=== PATIENT | male | born 1985 | race Caucasian/White ===

== ENCOUNTER 2020-02-19 15:26 | Emergency (ER) | payer OTHER, MEDICAID, SELFPAY ==
[2020-02-19 15:53] VITALS: BP 171/92; PULSE 112; RESP 20; TEMP 36.7; O2SAT 100
[2020-02-19 16:12] LABS: RBC Urine None Seen (0-5/HPF)
[2020-02-19 16:15] LABS: Appearance Urine UA CLEAR; Bilirubin Urine UA NEGATIVE (NEGATIVE); Color Urine UA YELLOW; Glucose Urine UA NEGATIVE (Negative); Ketones Urine UA 3+ (NEGATIVE); Leukocyte Esterase Urine UA NEGATIVE (NEGATIVE); Nitrite Urine UA NEGATIVE (Negative); Occult Blood Urine UA NEGATIVE (Negative); Protein Urine UA TRACE (Negative); Specific Gravity Urine UA 1.025 (1.000-1.035); Urobilinogen Urine UA 0.2 E.U./dL (0.2)
[2020-02-19 16:18] LABS: Add Manual Diff / Slide Review NO; Basophils Absolute Auto 0 /uL (0-100); Basophils Percent Auto 0.3 % (0-2); Eosinophils Absolute Auto 100 /uL (0-450); Eosinophils Percent Auto 0.7 % (2-4); Hematocrit 42.3 % (41-53); Lymphocytes Absolute Auto 1800 /uL (1100-4500); Mean Corpuscular HGB Conc 33.1 % (30-36); Mean Corpuscular Hemoglobin 31.1 PG (26-34); Mean Corpuscular Volume 93.8 fL (80-100); Monocytes Absolute Auto 1100 /uL (0-900); Monocytes Percent Auto 9.8 % (3-14); Neutrophils Absolute Auto 8300 /uL (1500-7000); Neutrophils Percent Auto 73.2 % (50-75); Platelet Count 278 X10^3/uL (150-400); Red Blood Cell Count 4.51 X10^6/uL (4.5-5.9); Red Cell Distribution Width 12.7 % (11.6-14.8); White Blood Cell Count 11.3 X10^3/uL (4.5-11.0)
[2020-02-19 16:21] LABS: UR Morphine/Opiate cutoff 300 Positive (Negative); Ur Creatinine Normal (Normal); Ur Specific Gravity Normal (Normal); Urine Amphetamines Positive (Negative); Urine Cocaine Negative (Negative); Urine Methamphetamines Positive (Negative); Urine Tetrahydrocannabinol Positive (Negative); Urine pH Normal (Normal)
[2020-02-19 16:22] LABS: Urine Barbiturates Negative (Negative); Urine Benzodiazepines Negative (Negative); Urine MDMA Negative (Negative); Urine Methadone Negative (Negative); Urine Oxycodone Negative (Negative); Urine Phencyclidine Negative (Negative); Urine Tricyclic Antidepressant Negative (Negative)
[2020-02-19 16:28] LABS: Alanine Aminotransferase 23 IU/L (<50); Albumin 4.5 g/dL (3.5-5.0); Albumin Globulin Ratio 1.5 (1.0-2.8); Alkaline Phosphatase 70 U/L (38-126); Aspartate Aminotransferase 42 IU/L (17-59); BUN Creatinine Ratio 12.5 (6-22); Bilirubin Total 0.8 mg/dL (0.2-1.3); Blood Urea Nitrogen 9 mg/dL (9-20); Calcium 9.3 mg/dL (8.4-10.2); Carbon Dioxide 29 mmol/L (22-32); Chloride 98 mmol/L (98-107); Estimated Glomerular Filt Rate > 60.0 mL/min (>60); Ethanol (ETOH) < 10 mg/dL; Globulin 3.1 g/dL (1.7-4.1); Glucose 103 mg/dL (70-100); HEMOLYSIS < 15 (0-50); Potassium 3.3 mmol/L (3.4-5.1); Sodium 137 mmol/L (137-145); Total Protein 7.6 g/dL (6.3-8.2)
[2020-02-19 16:35] LABS: Acetaminophen < 10 ug/mL (10-30); Salicylate < 1.0 mg/dL (<20)
[2020-02-19 16:36] LABS: Bacteria Urine Occasional (0-1); Culture Indicated Urine Cult Not Indicated; Mucus Urine 3+ (Negative); WBC Urine 0-1/HPF (0-5/HPF)
--- NOTE | 2020-02-19 16:44 | ED.ALCOHOL ---
HPI - Alcohol <Kiesha Roger PA-C - Last Filed: 02/19/20 19:33> General Chief Complaint: Toxicology Problem Stated Complaint: needs to be cleared for detox Time Seen by Provider: 02/19/20 15:28 Source: patient Mode of arrival: Ambulatory History of Present Illness HPI narrative: Luis E Escamilla is a 34-year-old male with a history of alcohol abuse and heroin use who presents to the emergency department POV for medical clearance to go to detox. He states he last had a drink about 3 days ago but was drinking about half a L of liquor usually vodka daily. He also states that he smokes heroin daily pretty much ?all day? for at least the last 7 days. He recently moved here to [place] from [place], with his family, he has been to detox before and has been on Suboxone before. He is currently seeking detox treatment so that he can be clean for at least 7 days to get a Vivitrol shot. He last smoked heroin this morning, and he endorses mild symptoms of withdrawal such as generalized diffuse abdominal discomfort and feeling generally a little bit uncomfortable. He reports otherwise he has been in his normal state of health and has no other concerns. MD complaint: desires rehab Last drink: just prior to this admission (3) and days (ago) Amount of alcohol consumed: At least a pt per day of vodka or other liquor. Also endorses smoking heroin on a daily basis for at least the last 7 days in a row. Chronic alcohol use: Yes Previous visits for alcohol intoxication: No Recent trauma: No Associated symptoms: abdominal pain (Described as discomfort) Treatments prior to arrival: none Related Data Allergies Allergy/AdvReac Type Severity Reaction Status Date / Time No Known Drug Allergies Allergy Verified 02/19/20 15:55 Review of Systems <Kiesha Roger PA-C - Last Filed: 02/19/20 19:33> Review of Systems Narrative: GENERAL: Denies chills, fatigue, malaise, fever, sweats. HEENT: Denies sinus pain, ear pain, sore throat, difficulty swallowing, dizziness. RESPIRATORY: Denies dyspnea, cough, wheezing, hemoptysis, sputum. CARDIOVASCULAR: Denies chest pain, palpitations, orthopnea, edema, GASTROINTESTINAL: Denies nausea, vomiting, abdominal pain, diarrhea, constipation, melena. : Denies dysuria, frequency, incontinence, hematuria, urinary retention. MUSCULOSKELETAL: denies weakness, joint pain, or bony pain SKIN: Denies rash, skin lesions, or other NEUROLOGIC: Denies weakness, headache, numbness, change in speech, confusion, seizures, incoordination. PSYCHIATRIC: No concerning psychosocial issues. 12 point review of systems is negative except for those stated above Patient History <Kiesha Roger PA-C - Last Filed: 02/19/20 19:33> Social History Smoking Status: Current some day smoker Smoking Status: Current some day smoker alcohol intake frequency: 3 or more drinks per day Alcohol type: hard liquor Substance Use Type: heroin Exam <Kiesha Roger PA-C - Last Filed: 02/19/20 19:33> Narrative Exam Narrative: GENERAL: 34 year old patient appears stated age. Well-nourished, well-developed patient, in mild distress. HEAD: Atraumatic. Normocephalic. EYES: Pupils equal round and reactive. Extraocular motions intact. No scleral icterus. No injection or drainage. ENT: Nose without bleeding, purulent drainage. Throat without erythema, tonsillar hypertrophy or exudate. Airway patent. NECK: Trachea midline. Non tender CARDIOVASCULAR: Regular rate and rhythm without murmurs, gallops, or rubs. RESPIRATORY: Clear to auscultation. Breath sounds equal bilaterally. No wheezes, rales, or rhonchi. GASTROINTESTINAL: Abdomen soft, non-tender, nondistended. EXTREMITIES: No edema or joint tenderness. BACK: Nontender without deformity or crepitance. No flank tenderness. NEURO: AOx3. SKIN: No rash or erythema of visible areas Initial Vital Signs Initial Vital Signs: Vital Signs Temperature 98.1 F 02/19/20 15:53 Pulse Rate 112 H 02/19/20 15:53 Respiratory Rate 02/19/20 15:53 Blood Pressure 171/92 H 02/19/20 15:53 Pulse Oximetry 100 02/19/20 15:53 <Madi Vizcaino DO - Last Filed: 02/25/20 19:01> Initial Vital Signs Initial Vital Signs: Vital Signs Temperature 98.1 F 02/19/20 15:53 Pulse Rate 112 H 02/19/20 15:53 Respiratory Rate 02/19/20 15:53 Blood Pressure 171/92 H 02/19/20 15:53 Pulse Oximetry 100 02/19/20 15:53 Course <Kiesha Roger PA-C - Last Filed: 02/19/20 19:33> Course Course Narrative: Patient was advised of the plan, and the need to medically clear him prior to arranging transport to detox. Orders Ordered: ED Orders 02/19/20 16:01 Urinalysis and Microscopic Stat Urine Drug Screen, Rapid Stat 02/19/20 16:10 Acetaminophen Stat Complete Blood Count AUTO DIFF Stat Comprehensive Metabolic Panel Stat Ethanol (ETOH) Stat Salicylate Stat Reevaluation(s) Reevaluation #1: Patient is still doing well, has been updated as to the results of his labs, also plan for transferring him to detox facility via taxi. He has his vehicle here in a parking lot outside the ED, has been notified that security will be aware of it and can stay here for the duration of his stay at detox if needed. Vital Signs Vital signs: Vital Signs - 8 hr 02/19/20 15:53 Temperature 98.1 F Pulse Rate 112 H Respiratory Rate 20 Blood Pressure 171/92 H Pulse Oximetry 100 <Madi Vizcaino DO - Last Filed: 02/25/20 19:01> Orders Ordered: ED Orders 02/19/20 16:01 Urinalysis and Microscopic Stat Urine Drug Screen, Rapid Stat 02/19/20 16:10 Acetaminophen Stat Complete Blood Count AUTO DIFF Stat Comprehensive Metabolic Panel Stat Ethanol (ETOH) Stat Salicylate Stat Vital Signs Vital signs: Vital Signs - 8 hr 02/19/20 15:53 Temperature 98.1 F Pulse Rate 112 H Respiratory Rate 20 Blood Pressure 171/92 H Pulse Oximetry 100 MDM - Alcohol <Kiesha Roger PA-C - Last Filed: 02/19/20 19:33> Differential Diagnosis Differential diagnosis: Likely alcohol intoxication (opiate withdrawal, opiate addiction) and alcohol withdrawal syndrome Lab Data Attestation: I reviewed the patient's lab results. Result diagrams: 02/19/20 16:10 02/19/20 16:10 Labs: Lab Results 02/19/20 02/19/20 02/19/20 Range/Units 16:01 16:01 16:10 WBC 11.3 H (4.5-11.0) X10^3/uL RBC 4.51 (4.5-5.9) X10^6/uL Hgb 14.0 (13.5-17.5) g/dL Hct 42.3 (41-53) % MCV 93.8 (80-100) fL MCH 31.1 (26-34) PG MCHC 33.1 (30-36) % RDW 12.7 (11.6-14.8) % Plt Count 278 (150-400) X10^3/uL Neut % (Auto) 73.2 (50-75) % Lymph % (Auto) 16.0 L (25-40) % Ponce % (Auto) 9.8 (3-14) % Eos % (Auto) 0.7 L (2-4) % Baso % (Auto) 0.3 (0-2) % Neut # (Auto) 8300 H (4719-7823) /uL Lymph # (Auto) 1800 (7781-6009) /uL Ponce # (Auto) 1100 H (0-900) /uL Eos # (Auto) 100 (0-450) /uL Baso # (Auto) 0 (0-100) /uL Sodium (137-145) mmol/L Potassium (3.4-5.1) mmol/L Chloride (98-107) mmol/L Carbon Dioxide (22-32) mmol/L BUN (9-20) mg/dL Creatinine (0.66-1.25) mg/dL Estimated GFR (>60) mL/min BUN/Creatinine Ratio (6-22) Glucose (70-100) mg/dL Calcium (8.4-10.2) mg/dL Total Bilirubin (0.2-1.3) mg/dL AST (17-59) IU/L ALT (<50) IU/L Alkaline Phosphatase (38-126) U/L Total Protein (6.3-8.2) g/dL Albumin (3.5-5.0) g/dL Globulin (1.7-4.1) g/dL Albumin/Globulin Ratio (1.0-2.8) Urine Color Yellow Urine Appearance Clear Urine pH 6.0 (4.5-8.0) Ur Specific [place] 1.025 (1.000-1.035) Urine Protein Trace H (Negative) Urine Glucose (UA) Negative (Negative) g/dL Urine Ketones 3+ H (NEGATIVE) Urine Occult Blood Negative (Negative) Urine Nitrate Negative (Negative) Urine Bilirubin Negative (NEGATIVE) Urine Urobilinogen 0.2 (0.2) E.U./dL Ur Leukocyte Esterase Negative (NEGATIVE) Urine RBC None seen (0-5/HPF) Urine WBC 0-1/hpf (0-5/HPF) Urine Bacteria Occasional (0-1) (None) Urine Mucus 3+ H (Negative) Ur Culture Indicated? Cult not indicated Salicylates (<20) mg/dL U Opiates 300ng/mL cut Positive H (Negative) Ur Oxycodone Screen Negative (Negative) Urine Methadone Screen Negative (Negative) Acetaminophen (10-30) ug/mL Ur Barbiturates Screen Negative (Negative) U Tricyclic Antidepress Negative (Negative) Ur Phencyclidine Scrn Negative (Negative) Ur Amphetamines Screen Positive H (Negative) U Methamphetamines Scrn Positive H (Negative) Ur MDMA Scrn (Ecstasy) Negative (Negative) U Benzodiazepines Scrn Negative (Negative) Urine Cocaine Screen Negative (Negative) U Marijuana (THC) Screen Positive H (Negative) Ethyl Alcohol ( - 10) mg/dL 02/19/20 02/19/20 Range/Units 16:10 16:10 WBC (4.5-11.0) X10^3/uL RBC (4.5-5.9) X10^6/uL Hgb (13.5-17.5) g/dL Hct (41-53) % MCV (80-100) fL MCH (26-34) PG MCHC (30-36) % RDW (11.6-14.8) % Plt Count (150-400) X10^3/uL Neut % (Auto) (50-75) % Lymph % (Auto) (25-40) % [place]once % (Auto) (3-14) % Eos % (Auto) (2-4) % Baso % (Auto) (0-2) % Neut # (Auto) (3167-8155) /uL Lymph # (Auto) (7053-0470) /uL Ponce # (Auto) (0-900) /uL Eos # (Auto) (0-450) /uL Baso # (Auto) (0-100) /uL Sodium 137 (137-145) mmol/L Potassium 3.3 L (3.4-5.1) mmol/L Chloride 98 (98-107) mmol/L Carbon Dioxide 29 (22-32) mmol/L BUN 9 (9-20) mg/dL Creatinine 0.72 (0.66-1.25) mg/dL Estimated GFR > 60.0 (>60) mL/min BUN/Creatinine Ratio 12.5 (6-22) Glucose 103 H (70-100) mg/dL Calcium 9.3 (8.4-10.2) mg/dL Total Bilirubin 0.8 (0.2-1.3) mg/dL AST 42 (17-59) IU/L ALT 23 (<50) IU/L Alkaline Phosphatase 70 (38-126) U/L Total Protein 7.6 (6.3-8.2) g/dL Albumin 4.5 (3.5-5.0) g/dL Globulin 3.1 (1.7-4.1) g/dL Albumin/Globulin Ratio 1.5 (1.0-2.8) Urine Color Urine Appearance Urine pH (4.5-8.0) Ur Specific [place] (1.000-1.035) Urine Protein (Negative) Urine Glucose (UA) (Negative) g/dL Urine Ketones (NEGATIVE) Urine Occult Blood (Negative) Urine Nitrate (Negative) Urine Bilirubin (NEGATIVE) Urine Urobilinogen (0.2) E.U./dL Ur Leukocyte Esterase (NEGATIVE) Urine RBC (0-5/HPF) Urine WBC (0-5/HPF) Urine Bacteria (None) Urine Mucus (Negative) Ur Culture Indicated? Salicylates < 1.0 (<20) mg/dL U Opiates 300ng/mL cut (Negative) Ur Oxycodone Screen (Negative) Urine Methadone Screen (Negative) Acetaminophen < 10 L (10-30) ug/mL Ur Barbiturates Screen (Negative) U Tricyclic Antidepress (Negative) Ur Phencyclidine Scrn (Negative) Ur Amphetamines Screen (Negative) U Methamphetamines Scrn (Negative) Ur MDMA Scrn (Ecstasy) (Negative) U Benzodiazepines Scrn (Negative) Urine Cocaine Screen (Negative) U Marijuana (THC) Screen (Negative) Ethyl Alcohol < 10 ( - 10) mg/dL MDM Narrative Medical decision making narrative: This is a generally well-appearing 34-year-old recently moved from [place] who presents for medical clearance to go to detox for alcohol and opioid treatment. Based on history and exam I have no concern for symptoms of coronavirus or COVID-19, and he does not meet criteria for testing today. Pending medical clearance, plan to discharge [facility], patient will go via taxi to the detox center, his vehicle will remain here in the hospital parking lot, security has been notified.. Differential diagnoses considered include alcohol withdrawal, alcohol withdrawal seizures, alcohol intoxication, opioid withdrawal, he is not in any acute distress, and is well appearing, history and exam are unremarkable, it is appropriate to discharge him to Treatment Center for detox. <Madi Vizcaino, DO - Last Filed: 02/25/20 19:01> Lab Data Labs: Lab Results 02/19/20 02/19/20 02/19/20 Range/Units 16:01 16:01 16:10 WBC 11.3 H (4.5-11.0) X10^3/uL RBC 4.51 (4.5-5.9) X10^6/uL Hgb 14.0 (13.5-17.5) g/dL Hct 42.3 (41-53) % MCV 93.8 (80-100) fL MCH 31.1 (26-34) PG MCHC 33.1 (30-36) % RDW 12.7 (11.6-14.8) % Plt Count 278 (150-400) X10^3/uL Neut % (Auto) 73.2 (50-75) % Lymph % (Auto) 16.0 L (25-40) % [place]once % (Auto) 9.8 (3-14) % Eos % (Auto) 0.7 L (2-4) % Baso % (Auto) 0.3 (0-2) % Neut # (Auto) 8300 H (7130-7173) /uL Lymph # (Auto) 1800 (6812-0694) /uL Ponce # (Auto) 1100 H (0-900) /uL Eos # (Auto) 100 (0-450) /uL Baso # (Auto) 0 (0-100) /uL Sodium (137-145) mmol/L Potassium (3.4-5.1) mmol/L Chloride (98-107) mmol/L Carbon Dioxide (22-32) mmol/L BUN (9-20) mg/dL Creatinine (0.66-1.25) mg/dL Estimated GFR (>60) mL/min BUN/Creatinine Ratio (6-22) Glucose (70-100) mg/dL Calcium (8.4-10.2) mg/dL Total Bilirubin (0.2-1.3) mg/dL AST (17-59) IU/L ALT (<50) IU/L Alkaline Phosphatase (38-126) U/L Total Protein (6.3-8.2) g/dL Albumin (3.5-5.0) g/dL Globulin (1.7-4.1) g/dL Albumin/Globulin Ratio (1.0-2.8) Urine Color Yellow Urine Appearance Clear Urine pH 6.0 (4.5-8.0) Ur Specific [place] 1.025 (1.000-1.035) Urine Protein Trace H (Negative) Urine Glucose (UA) Negative (Negative) g/dL Urine Ketones 3+ H (NEGATIVE) Urine Occult Blood Negative (Negative) Urine Nitrate Negative (Negative) Urine Bilirubin Negative (NEGATIVE) Urine Urobilinogen 0.2 (0.2) E.U./dL Ur Leukocyte Esterase Negative (NEGATIVE) Urine RBC None seen (0-5/HPF) Urine WBC 0-1/hpf (0-5/HPF) Urine Bacteria Occasional (0-1) (None) Urine Mucus 3+ H (Negative) Ur Culture Indicated? Cult not indicated Salicylates (<20) mg/dL U Opiates 300ng/mL cut Positive H (Negative) Ur Oxycodone Screen Negative (Negative) Urine Methadone Screen Negative (Negative) Acetaminophen (10-30) ug/mL Ur Barbiturates Screen Negative (Negative) U Tricyclic Antidepress Negative (Negative) Ur Phencyclidine Scrn Negative (Negative) Ur Amphetamines Screen Positive H (Negative) U Methamphetamines Scrn Positive H (Negative) Ur MDMA Scrn (Ecstasy) Negative (Negative) U Benzodiazepines Scrn Negative (Negative) Urine Cocaine Screen Negative (Negative) U Marijuana (THC) Screen Positive H (Negative) Ethyl Alcohol ( - 10) mg/dL 02/19/20 02/19/20 Range/Units 16:10 16:10 WBC (4.5-11.0) X10^3/uL RBC (4.5-5.9) X10^6/uL Hgb (13.5-17.5) g/dL Hct (41-53) % MCV (80-100) fL MCH (26-34) PG MCHC (30-36) % RDW (11.6-14.8) % Plt Count (150-400) X10^3/uL Neut % (Auto) (50-75) % Lymph % (Auto) (25-40) % [place]once % (Auto) (3-14) % Eos % (Auto) (2-4) % Baso % (Auto) (0-2) % Neut # (Auto) (7624-0312) /uL Lymph # (Auto) (5954-9691) /uL [place]once # (Auto) (0-900) /uL Eos # (Auto) (0-450) /uL Baso # (Auto) (0-100) /uL Sodium 137 (137-145) mmol/L Potassium 3.3 L (3.4-5.1) mmol/L Chloride 98 (98-107) mmol/L Carbon Dioxide 29 (22-32) mmol/L BUN 9 (9-20) mg/dL Creatinine 0.72 (0.66-1.25) mg/dL Estimated GFR > 60.0 (>60) mL/min BUN/Creatinine Ratio 12.5 (6-22) Glucose 103 H (70-100) mg/dL Calcium 9.3 (8.4-10.2) mg/dL Total Bilirubin 0.8 (0.2-1.3) mg/dL AST 42 (17-59) IU/L ALT 23 (<50) IU/L Alkaline Phosphatase 70 (38-126) U/L Total Protein 7.6 (6.3-8.2) g/dL Albumin 4.5 (3.5-5.0) g/dL Globulin 3.1 (1.7-4.1) g/dL Albumin/Globulin Ratio 1.5 (1.0-2.8) Urine Color Urine Appearance Urine pH (4.5-8.0) Ur Specific [place] (1.000-1.035) Urine Protein (Negative) Urine Glucose (UA) (Negative) g/dL Urine Ketones (NEGATIVE) Urine Occult Blood (Negative) Urine Nitrate (Negative) Urine Bilirubin (NEGATIVE) Urine Urobilinogen (0.2) E.U./dL Ur Leukocyte Esterase (NEGATIVE) Urine RBC (0-5/HPF) Urine WBC (0-5/HPF) Urine Bacteria (None) Urine Mucus (Negative) Ur Culture Indicated? Salicylates < 1.0 (<20) mg/dL U Opiates 300ng/mL cut (Negative) Ur Oxycodone Screen (Negative) Urine Methadone Screen (Negative) Acetaminophen < 10 L (10-30) ug/mL Ur Barbiturates Screen (Negative) U Tricyclic Antidepress (Negative) Ur Phencyclidine Scrn (Negative) Ur Amphetamines Screen (Negative) U Methamphetamines Scrn (Negative) Ur MDMA Scrn (Ecstasy) (Negative) U Benzodiazepines Scrn (Negative) Urine Cocaine Screen (Negative) U Marijuana (THC) Screen (Negative) Ethyl Alcohol < 10 ( - 10) mg/dL Discharge Plan Departure Patient Disposition: Released, Other Clinical Impression: Desire for detoxification, Polydrug dependence including opioid type drug with episodic abuse without complication Discharge Date/Time: 02/19/20 18:54 Instructions: DI for Alcohol Abuse, DI for Drug Abuse and Drug Addiction, DI for Alcohol Poisoning Activity Restrictions/Additional Instructions: There is no evidence of an emergent or life threatening illness at this time, but follow up with your doctor in 1-2 days is recommended nonetheless to continue to rule out serious underlying causes of your symptoms. Please call the office for an appointment. Please return to the Emergency Department for any worsening or persistent symptoms. Please take medications as directed. Your information has been transferred to [facility] detox center. You have been medically cleared to go to detox. you did not have any symptoms suggestive of coronavirus, and do not warrant testing for this today. Referrals: [facility] [Outside] <Madi Vizcaino, DO - Last Filed: 02/25/20 19:01> Cosign ED Attending Costamature Attestation: Dr Vizcaino Co-Sign Statement: I was available for consultation during this patient's emergency department visit. This chart is signed by myself for administrative purposes only. I did not have direct contact with this patient during this visit. They were seen independently by the APC.
--- NOTE | 2020-02-19 17:41 | PC.NURSE ---
Pt is afebrile, denies fever/cough/soa or recent illness, negative for covid-19 symptom check
== END 2020-02-19 18:54 | disposition home or self-care (01) ==
PROVIDERS: Emergency Medicine; Emergency Provider Student in an Organized Health Care Education/Training Program
DX: F19.20 Other psychoactive substance dependence, uncomplicated (principal)
CPT/HCPCS: 36415; 80053; 80305; 80320; 80329; 81001; 85025; 99283; G0480

== ENCOUNTER 2025-03-09 19:25 | Emergency (ER) | payer OTHER, SELFPAY ==
[2025-03-09 19:28] VITALS: BP 132/80; PULSE 68; RESP 16; TEMP 36.7; O2SAT 100; BMI 26.9
--- NOTE | 2025-03-09 19:37 | ED_ITS ---
HPI - Back Pain/Injury General Chief Complaint: Back Pain/Injury Stated Complaint: lower back and side px x 14 days Time Seen by Provider: 03/09/25 19:36 Source: patient History of Present Illness HPI Narrative: 39-year-old gentleman middle to lower back pain that is been ongoing for the past few weeks unrelieved with Tylenol. Patient states that when he urinates at times it also feels different in his back and especially when he lies down at night. He denies any numbness tingling down the legs bowel or bladder incontinence or gait instability. 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 Other than what is stated 14 point review of system is negative. Related Data Previous Rx's Medication Instructions Recorded cyclobenzaprine 10 mg tablet 10 mg PO TID PRN muscle spasm #30 03/09/25 tabs diclofenac potassium 50 mg tablet 50 mg PO TID PRN pain #30 tabs 03/09/25 prednisone 20 mg tablet 20 mg PO DAILY #5 tabs 03/09/25 Allergies Allergy/AdvReac Type Severity Reaction Status Date / Time No Known Drug Allergies Allergy Verified 03/09/25 19:28 Review of Systems Review of Systems ROS Unobtainable: All systems reviewed & are unremarkable except as noted in HPI and below Patient History Social History Smoking Status: Current every day smoker Smoking Status: Current every day smoker tobacco type: vaping alcohol intake frequency: 3 or more drinks per day Alcohol type: hard liquor Exam Narrative Exam Narrative: GENERAL: [39] year old patient appears stated age. Well-developed patient, in mild distress. HEAD: Atraumatic. Normocephalic. EYES: Pupils equal round and reactive. Extraocular motions intact. No scleral icterus. No injection or drainage. NECK: Trachea midline. Non tender GASTROINTESTINAL: Abdomen soft, non-tender, nondistended. EXTREMITIES: No edema or joint tenderness. BACK: TTP b/l T8-12 and L1-4 midline without deformity or crepitance. No flank tenderness. NEURO: AOx3. SKIN: No rash or erythema of visible areas Initial Vital Signs Initial Vital Signs: Vital Signs Temperature 98.0 F 03/09/25 19:28 Pulse Rate 68 03/09/25 19:28 Respiratory Rate 16 03/09/25 19:28 Blood Pressure 132/80 05/04/25 19:28 Pulse Oximetry 100 03/09/25 19:28 Oxygen Delivery Method Room Air 03/09/25 19:28 Course Orders Ordered: ED Orders 03/09/25 19:55 XR lumbar spine min 4V Stat XR thoracic spine 3V Stat 03/09/25 20:02 Urine Microscopic Stat Discontinued Medications Cyclobenzaprine HCl (Cyclobenzaprine 10 Mg Tablet) 10 mg PO NOW ONE Stop: 03/09/25 19:57 Last Admin: 03/09/25 20:02 Dose: 10 mg Documented By: ADAM Ibuprofen (Ibuprofen 400 Mg Tablet) 800 mg PO NOW ONE Stop: 03/09/25 19:57 Last Admin: 03/09/25 20:01 Dose: 800 mg Documented By: ADAM Prednisone (Prednisone 20 Mg Tablet) 60 mg PO NOW ONE Stop: 03/09/25 19:57 Last Admin: 03/09/25 20:02 Dose: 60 mg Documented By: ADAM Vital Signs Vital signs: Vital Signs - 8 hr 03/09/25 19:28 Temperature 98.0 F Pulse Rate 68 Respiratory Rate 16 Blood Pressure 132/80 Pulse Oximetry 100 Oxygen Delivery Method Room Air MDM - Back Pain/Injury Lab Data Labs: Lab Results 03/09/25 Range/Units 20:02 Urine RBC None seen (0-5/HPF) Urine WBC None seen (0-5/HPF) Ur Squamous Epith Cells None seen (0-5/HPF) Urine Bacteria None seen (None) Ur Culture Indicated? Cult not indicated Vol Urine Centrifuged 10ml (spun) Urine Dip Bedside Urine Glucose Negative Bedside Urine Bilirubin - Negative Bedside Urine Ketone - Negative Urine Specific [place] 1.020 Bedside Urine Occult Blood - Negative Bedside Urine pH 6.0 Bedside Urine Protein - Negative Bedside Urine Urobilinogen - Negative Bedside Urine Nitrite - Negative Bedside Urine Leukocytes - Negative Esterase Imaging Data Extremity x-ray #1: Radiologist's Impression: [address] [address] XRay Report Signed Patient: Luis E Escamilla V MR#: [id number] : 1985 Acct:[id number] Age/Sex: 39 / M Date of Service: 03/09/25 Loc: ED Accession Number: [id number] Procedure: XR lumbar spine min 4V Ordering Provider: Colby De Paz D.O. PROCEDURE: XR LUMBAR SPINE MIN 4V INDICATIONS: back pain TECHNIQUE: 5 views of the lumbar spine were acquired, including bilateral oblique views. COMPARISON: None. FINDINGS: Bones: 5 nonrib-bearing vertebrae are present. There is normal bony alignment. No vertebral body compression fractures. L4 limbus body noted. No suspicious bony lesions. Soft tissues: Overlying bowel gas pattern is normal. No suspicious soft tissue calcifications. Oblique images: No pars defects. IMPRESSION: No acute fracture. L4 limbus body, variant. Dictated by: Varinder Parker M.D. on 03/09/2025 at 21:00 Approved by: Varinder Parker M.D. on 03/09/2025 at 21:02 [place] [address] XRay Report Signed Patient: Luis E Escamilla V MR#: [id number] : 1985 Acct:[id number] Age/Sex: 39 / M Date of Service: 03/09/25 Loc: ED Accession Number: [id number] Procedure: XR thoracic spine 3V Ordering Provider: Colby De Paz D.O. PROCEDURE: XR THORACIC SPINE 3V INDICATIONS: back pain TECHNIQUE: 3 views of the thoracic spine were acquired. COMPARISON: None. FINDINGS: Bones: No fractures or dislocations. No suspicious bony lesions. 12 pairs of ribs are noted, and appear intact where visualized. Small vertebral body osteophytes. Soft tissues: No paravertebral stripe thickening. IMPRESSION: No compression fracture. Mild degenerative changes. Dictated by: Varinder Parker M.D. on 03/09/2025 at 21:02 Approved by: Varinder Parker M.D. on 03/09/2025 at 21:03 [facility] Narrative Medical decision making narrative: All vital signs nurse triage note medication list previous ER visits and all imaging modalities reviewed. Given Tylenol or ibuprofen prednisone Flexeril here. DC home on prednisone diclofenac and muscle relaxant. Differential diagnosis includes spondylolisthesis, spondylolysis, arthritis, sciatica, piriformis syndrome, herniated disc, and spasm. Discharge Plan Departure Patient Disposition: Home Clinical Impression: Low back pain Qualifiers: Chronicity: acute Back pain laterality: midline Sciatica presence: without sciatica Qualified Code(s): M54.50 - Low back pain, unspecified Instructions: DI for Low Back Pain Activity Restrictions/Additional Instructions: Return with new or worsening symptoms. Take your medicines as directed. Follow up with PCP in 1-2 weeks if no improvement symptoms Prescriptions: New diclofenac potassium 50 mg tablet 50 mg PO TID PRN (Reason: pain) Qty: 30 0RF prednisone 20 mg tablet 20 mg PO DAILY Qty: 5 0RF cyclobenzaprine 10 mg tablet 10 mg PO TID PRN (Reason: muscle spasm) Qty: 30 0RF Referrals: Miscellaneous,Doctor, MD [Primary Care Provider] - Stand Alone Forms: Patient Portal/API/Survey
--- NOTE | 2025-03-09 19:55 | DI.RAD.S_ITS ---
PROCEDURE: XR THORACIC SPINE 3V INDICATIONS: back pain TECHNIQUE: 3 views of the thoracic spine were acquired. COMPARISON: None. FINDINGS: Bones: No fractures or dislocations. No suspicious bony lesions. 12 pairs of ribs are noted, and appear intact where visualized. Small vertebral body osteophytes. Soft tissues: No paravertebral stripe thickening. IMPRESSION: No compression fracture. Mild degenerative changes. Dictated by: Varinder Parker M.D. on 03/09/2025 at 21:02 Approved by: Varinder Parker M.D. on 03/09/2025 at 21:03
--- NOTE | 2025-03-09 19:55 | DI.RAD.S_ITS ---
PROCEDURE: XR LUMBAR SPINE MIN 4V INDICATIONS: back pain TECHNIQUE: 5 views of the lumbar spine were acquired, including bilateral oblique views. COMPARISON: None. FINDINGS: Bones: 5 nonrib-bearing vertebrae are present. There is normal bony alignment. No vertebral body compression fractures. L4 limbus body noted. No suspicious bony lesions. Soft tissues: Overlying bowel gas pattern is normal. No suspicious soft tissue calcifications. Oblique images: No pars defects. IMPRESSION: No acute fracture. L4 limbus body, variant. Dictated by: Varinder Parker M.D. on 03/09/2025 at 21:00 Approved by: Varinder Parker M.D. on 03/09/2025 at 21:02
[2025-03-09] MEDS: IBUPROFEN 400 MG TABLET 800 MG PO (20:01)
[2025-03-09] MEDS: predniSONE 20 MG TABLET 60 MG PO (20:02)
[2025-03-09] MEDS: CYCLOBENZAPRINE 10 MG TABLET PO (20:02)
[2025-03-09 20:21] LABS: Bacteria Urine None Seen; Culture Indicated Urine Cult Not Indicated; RBC Urine None Seen (0-5/HPF); Squamous Epithelial Cell Urine None Seen (0-5/HPF); Urine Volume 10mL (spun); WBC Urine None Seen (0-5/HPF)
== END 2025-03-09 21:43 | disposition home or self-care (01) ==
PROVIDERS: Emergency Provider Family Medicine
DX: M54.50 Low back pain, unspecified (principal)
CPT/HCPCS: 72072; 72110; 81003; 81015; 99283